=== PATIENT | female | born 1985 | race Hispanic/Latino ===

== ENCOUNTER 2016-08-29 17:56 | Emergency (ER) | payer BC ==
[2016-08-29 18:10] VITALS: BP 131/84; PULSE 82; RESP 20; TEMP 97.8; O2SAT 98
--- NOTE | 2016-08-29 18:40 | ED PDOC ---
Syncope/Near Syncope/Dizziness Time Seen by Provider: 08/29/16 18:09 Chief Complaint (Nursing): Dizziness/Lightheaded Chief Complaint (Provider): Dizziness History Per: Patient History/Exam Limitations: no limitations Onset/Duration Of Symptoms: Days ([id number]) Current Symptoms Are (Timing): Still Present Severity: Mild (Mild onset) Additional Complaint(s): Emilia Lee presents to the ED with a chief complaint of mild dizziness ongoing for 2 weeks and is progressively getting worse. Associated symptoms includes a mild cough and cold, along with some trouble focusing. Patient also states that 2 days prior to onset patient returned from vacation to [place] and [place]. Denies any focal weakness, hearing loss, vision loss, or headache, but reports feeling pressure on the anterior forehead to the temples. Patient has been feeling vertiginous and states she almost lost her balance and fell down. Symptoms are especially worse with certain movement of the head. PMD: No provider Past Medical History Reviewed: Historical Data, Nursing Documentation, Vital Signs Vital Signs: Last Vital Signs Temp 97.8 F 08/29/16 18:08 Pulse 82 08/29/16 18:08 Resp 20 08/29/16 18:08 BP 131/84 08/29/16 18:08 Pulse Ox 98 08/29/16 18:08 - Medical History PMH: No Chronic Diseases - Surgical History Surgical History: (1 ) - Family History Family History: States: Diabetes, Hypertension - Social History Current smoker - smoking cessation education provided: No Ex-Smoker (has not smoked in the last 12 months): No Alcohol: Social Drugs: Denies - Home Medications Home Medications: Ambulatory Orders Medication Instructions Recorded Meclizine [Antivert] 25 mg PO Q6 PRN #30 tab 08/29/16 Ondansetron ODT [Zofran ODT] 1 odt PO Q6 PRN #20 odt 08/29/16 Prednisone 50 mg PO DAILY #4 tablet 08/29/16 - Allergies Allergies/Adverse Reactions: Allergies Allergy/AdvReac Type Severity Reaction Status Date / Time No Known Allergies Allergy Verified 08/29/16 18:08 Review of Systems ROS Statement: Except As Marked, All Systems Reviewed And Found Negative (and as per HPI) Constitutional: Positive for: Other (Mild cold) Eyes: Negative for: Vision Change (No vision loss) ENT: Negative for: Other (No Hearing loss) Respiratory: Positive for: Cough (Mild) Neurological: Positive for: Dizziness. Negative for: Headache Physical Exam - Reviewed Nursing Documentation Reviewed: Yes Vital Signs Reviewed: Yes - Physical Exam Appears: Positive for: Non-toxic, Uncomfortable Head Exam: Positive for: ATRAUMATIC, NORMOCEPHALIC Skin: Positive for: Warm, Dry Eye Exam: Positive for: EOMI, PERRL, Nystagmus (to RIGHT side) ENT: Negative for: Pharyngeal Erythema, Tonsillar Exudate Neck: Positive for: Painless ROM, Supple Cardiovascular/Chest: Positive for: Regular Rate, Rhythm, Chest Non Tender. Negative for: Murmur Respiratory: Positive for: Normal Breath Sounds. Negative for: Wheezing, Respiratory Distress Gastrointestinal/Abdominal: Positive for: Soft. Negative for: Tenderness Back: Positive for: Normal Inspection. Negative for: Vertebral Tenderness Extremity: Positive for: Normal ROM. Negative for: Deformity Lymphatic: Negative for: Adenopathy Neurologic/Psych: Positive for: Alert, electric needle specialist II-XII (intact), Oriented (x3), Mood/ Affect (mildly anxious, normal concentration, normal thought process, normal affect), Cerebellar Tests (normal FTN), Gait (steady), Other (+dixhallpike testing to RIGHT sided rotation). Negative for: Motor/Sensory Deficits, Aphasia - Laboratory Results Result Diagrams: 08/29/16 19:00 08/29/16 19:00 Interpretation Of Abn Labs: no emergent clinically significant lab abnormalities - ECG O2 Sat by Pulse Oximetry: 98 Pulse Ox Interpretation: Normal - Progress ED Course And Treament: Accession No. : [id number] Patient Name / ID : JOAQUÍN TRIMBLE M / [id number] Exam Date : 08/29/2016 18:39:49 ( Approved ) Study Comment : Sex / Age : F / 31Y Creator : Howard Kaur MD Dictator : Howard Kaur MD Inspector Motor Vehicles : Beater Room Supervisor : Howard Kaur MD Approver2 : Report Date : 08/29/2016 19:00:19 My Comment : PROCEDURE: CT HEAD WITHOUT CONTRAST. HISTORY: dizziness COMPARISON: None available. TECHNIQUE: Axial computed tomography images were obtained through the head/brain without intravenous contrast. Radiation dose: Total exam DLP = 795.60 mGy-cm. This CT exam was performed using one or more of the following dose reduction techniques: Automated exposure control, adjustment of the mA and/or kV according to patient size, and/or use of iterative reconstruction technique. FINDINGS: HEMORRHAGE: No intracranial hemorrhage. BRAIN: No mass effect or edema. No atrophy or chronic microvascular ischemic changes. VENTRICLES: Unremarkable. No hydrocephalus. CALVARIUM: Unremarkable. PARANASAL SINUSES: Unremarkable as visualized. No significant inflammatory changes. MASTOID AIR CELLS: Unremarkable as visualized. No inflammatory changes. OTHER FINDINGS: None. IMPRESSION: Normal CT of the Head. No intracranial mass, hemorrhage or evidence of acute infarct. No relief from meclizine. Pt ordered given decadron. Offered valium but declined. She would like to go home. Strongly advised neuro and ENT follow up. Re-evaluation Time: 20:00 Condition: Unchanged (but eager to go home) Disposition - Clinical Impression Clinical Impression: Vertigo - Disposition Referrals: [facility] [Outside] Sonny Murillo MD [Staff Provider] - 09/01/16 (FOLLOW UP WITH NEUROLOGY NEXT WEEK) Disposition: Routine/Home Disposition Time: 21:00 Condition: STABLE Prescriptions: Meclizine [Antivert] 25 mg PO Q6 PRN #30 tab PRN Reason: Dizziness Ondansetron ODT [Zofran ODT] 1 odt PO Q6 PRN #20 odt PRN Reason: Nausea/Vomiting Prednisone 50 mg PO DAILY #4 tablet Instructions: Meniere Disease (ED), Benign Paroxysmal Positional Vertigo (ED) Forms: [facility] ED School/Work Excuse
--- NOTE | 2016-08-29 19:02 | CT ---
PROCEDURE: CT HEAD WITHOUT CONTRAST. HISTORY: dizziness COMPARISON: None available. TECHNIQUE: Axial computed tomography images were obtained through the head/brain without intravenous contrast. Radiation dose: Total exam DLP = 795.60 mGy-cm. This CT exam was performed using one or more of the following dose reduction techniques: Automated exposure control, adjustment of the mA and/or kV according to patient size, and/or use of iterative reconstruction technique. FINDINGS: HEMORRHAGE: No intracranial hemorrhage. BRAIN: No mass effect or edema. No atrophy or chronic microvascular ischemic changes. VENTRICLES: Unremarkable. No hydrocephalus. CALVARIUM: Unremarkable. PARANASAL SINUSES: Unremarkable as visualized. No significant inflammatory changes. MASTOID AIR CELLS: Unremarkable as visualized. No inflammatory changes. OTHER FINDINGS: None. IMPRESSION: Normal CT of the Head. No intracranial mass, hemorrhage or evidence of acute infarct.
[2016-08-29 19:04] LABS: BASO # 0.1 K/uL (0.0-0.2); BASO % 0.6 % (0.0-2.0); EOS # 0.2 K/uL (0.0-0.7); EOS % 1.7 % (0.0-4.0); HEMOGLOBIN 13.7 g/dL (12.0-16.0); LYMPH # 3.5 K/uL (1.0-4.3); LYMPH % 34.4 % (20.0-40.0); MEAN CELL VOLUME 90.5 fl (81.0-99.0); MEAN CORPUSCULAR HEMOGLOBIN 30.2 pg (27.0-31.0); MEAN CORPUSCULAR HGB CONC 33.3 g/dL (33.0-37.0); MEAN PLATELET VOLUME 6.7 fl (7.2-11.7); MONO # 0.8 K/uL (0.0-0.8); MONO % 7.5 % (0.0-10.0); NEUT # 5.7 K/uL (1.8-7.0); NEUT % 55.8 % (50.0-75.0); RBC 4.56 Mil/uL (3.80-5.20); RED CELL DISTRIBUTION WIDTH 12.5 % (11.5-14.5); WHITE BLOOD COUNT 10.2 K/uL (4.8-10.8)
[2016-08-29 19:35] LABS: ALB/GLOB RATIO 1.6 (1.0-2.1); ALBUMIN 4.9 g/dL (3.5-5.0); ALT/SGPT 45 U/L (9-52); AST/SGOT 30 U/L (14-36); BLOOD UREA NITROGEN 13 mg/dl (7-17); CALCIUM 9.9 mg/dL (8.4-10.2); GFR AFRICAN-AMERICAN > 60; GFR NON-AFRICAN AMERICAN > 60
[2016-08-29] MEDS ORDERED: Dexamethasone 4 mg/1 ml IVP STA (20:05)
== END 2016-08-29 22:15 | disposition home or self-care (01) ==
LOC: H.ER 17:56
DX: R42 Dizziness and giddiness (principal)
CPT/HCPCS: 70450; 80053; 81025; 82948; 83735; 84100; 85025; 96374; 99285; J1100

== ENCOUNTER 2017-12-05 11:23 | Emergency (ER) | payer BC ==
[2017-12-05 11:27] VITALS: BMI 30.4
[2017-12-05] MEDS ORDERED: Sodium Chloride 0.9% 1,000 ML IV STA (11:50)
--- NOTE | 2017-12-05 11:50 | ED PDOC ---
HPI: General Adult Time Seen by Provider: 12/05/17 11:31 Chief Complaint (Provider): abd pain, nausea History Per: Patient Additional Complaint(s): 32-year-old female with no past medical history presents with right upper abdominal pain and diarrhea ongoing for 1 week. Patient also has persistent nausea with no vomiting. Patient states her last normal solid bowel movement was last week. Since then she has had watery, nonbloody bowel movements only. Patient has been able to eat but does have slightly decreased appetite. She states the pain is only 3-4 out of 10 and she has not taken any meds for pain relief since pain started last week. PMD: none Past Medical History Reviewed: Historical Data, Nursing Documentation, Vital Signs Vital Signs: Last Vital Signs Temp 98.8 F 12/05/17 11:27 Pulse 66 12/05/17 11:27 Resp 17 12/05/17 11:27 BP 115/80 12/05/17 11:27 Pulse Ox 100 12/05/17 11:27 - Medical History PMH: No Chronic Diseases - Surgical History Surgical History: (1 ) - Family History Family History: States: Diabetes, Hypertension - Living Arrangements Living Arrangements: With Family - Social History Current smoker - smoking cessation education provided: No Alcohol: None Drugs: Denies - Home Medications Home Medications: Ambulatory Orders Medication Instructions Recorded Meclizine [Antivert] 25 mg PO Q6 PRN #30 tab 08/29/16 Ondansetron ODT [Zofran ODT] 1 odt PO Q6 PRN #20 odt 08/29/16 Prednisone 50 mg PO DAILY #4 tablet 08/29/16 Ondansetron [Zofran Odt] 4 mg PO ASDIR PRN #10 odt 12/05/17 - Allergies Allergies/Adverse Reactions: Allergies Allergy/AdvReac Type Severity Reaction Status Date / Time No Known Allergies Allergy Verified 08/29/16 18:08 Review of Systems ROS Statement: Except As Marked, All Systems Reviewed And Found Negative Constitutional: Negative for: Fever, Chills Cardiovascular: Negative for: Chest Pain Respiratory: Negative for: Cough Gastrointestinal: Positive for: Nausea, Abdominal Pain, Diarrhea. Negative for: Vomiting Physical Exam - Reviewed Nursing Documentation Reviewed: Yes Vital Signs Reviewed: Yes - Physical Exam Appears: Positive for: Well, Non-toxic, No Acute Distress Skin: Positive for: Normal Color. Negative for: Rash Eye Exam: Positive for: Normal appearance Cardiovascular/Chest: Positive for: Regular Rate, Rhythm Respiratory: Positive for: Normal Breath Sounds Gastrointestinal/Abdominal: Positive for: Other (Mild tenderness right upper quadrant, mild distention noted, no rebound or guarding, normoactive bowel sounds in all 4 quadrant) Back: Negative for: L CVA Tenderness, R CVA Tenderness Extremity: Positive for: Normal ROM Neurologic/Psych: Positive for: Alert, Oriented - Laboratory Results Result Diagrams: 12/05/17 12:40 12/05/17 12:40 Urine POC: Negative Urine dip results: Negative for: Leukocyte Esterase, Blood, Nitrate, Ketones, Glucose, Bilirubin, Protein - ECG O2 Sat by Pulse Oximetry: 100 Pulse Ox Interpretation: Normal - Other Rad CT abd and pelvis with IV contrast X-Ray: Read By Radiologist X-Ray Interpretation: fatty liver, no other finding Medical Decision Making Medical Decision Makin32 year old with abdominal pain and diarrhea Plan: Urine test Urine dip CBC CMP Lipase CT and and pelvis with IV contrast Patient is aware of all diagnostic testing results, all questions answered. Liver functions are elevated mildly. Will draw hepatitis panel. Patient given dietary instructions for relief of diarrhea. Advised PMD follow-up. Disposition - Clinical Impression Clinical Impression: Abdominal pain, Diarrhea - Patient ED Disposition Is Patient to be Admitted: No Counseled Patient/Family Regarding: Studies Performed, Diagnosis, Need For Followup - Disposition Referrals: Alejandrina Quinones MD [Staff Provider] - Disposition: Routine/Home Disposition Time: 15:50 Condition: STABLE Additional Instructions: Drink plenty of fluids. Follow-up BRAT diet for relief of diarrhea: Bananas, rice, apples and toast. Contact your insurance company to obtain a primary care provider that is in network. Prescriptions: Ondansetron [Zofran Odt] 4 mg PO ASDIR PRN #10 odt PRN Reason: Nausea/Vomiting Instructions: Diarrhea in Adolescents and Adults, Stomach Ache and Stomach Upset Results - Lab Results Lab Results: 12/05/17 12/05/17 12:40 12:40 WBC 8.1 RBC 4.72 Hgb 14.6 Hct 42.9 MCV 91.1 MCH 30.9 MCHC 33.9 RDW 12.7 Plt Count 308 MPV 7.0 L Neut % (Auto) 52.7 Lymph % (Auto) 36.4 Nuckolls % (Auto) 8.2 Eos % (Auto) 1.9 Baso % (Auto) 0.8 Neut # (Auto) 4.3 Lymph # (Auto) 3.0 Nuckolls # (Auto) 0.7 Eos # (Auto) 0.2 Baso # (Auto) 0.1 Sodium 140 Potassium 4.2 Chloride 106 Carbon Dioxide 23 Anion Gap 15 BUN 13 Creatinine 0.6 L Est GFR ( Amer) > 60 Est GFR (Non-Af Amer) > 60 Random Glucose 80 Calcium 9.8 Total Bilirubin 0.6 AST 42 H ALT 82 H D Alkaline Phosphatase 66 Total Protein 8.1 Albumin 4.6 Globulin 3.5 Albumin/Globulin Ratio 1.3 Lipase 75
[2017-12-05 13:10] LABS: BASO # 0.1 K/uL (0.0-0.2); BASO % 0.8 % (0.0-2.0); EOS # 0.2 K/uL (0.0-0.7); EOS % 1.9 % (0.0-4.0); HEMOGLOBIN 14.6 g/dL (12.0-16.0); LYMPH % 36.4 % (20.0-40.0); MEAN CELL VOLUME 91.1 fl (81.0-99.0); MEAN CORPUSCULAR HEMOGLOBIN 30.9 pg (27.0-31.0); MEAN CORPUSCULAR HGB CONC 33.9 g/dL (33.0-37.0); MONO # 0.7 K/uL (0.0-0.8); MONO % 8.2 % (0.0-10.0); NEUT # 4.3 K/uL (1.8-7.0); NEUT % 52.7 % (50.0-75.0); NRBC % 0.1 % (0.0-0.0); RBC 4.72 Mil/uL (3.80-5.20); RED CELL DISTRIBUTION WIDTH 12.7 % (11.5-14.5); WHITE BLOOD COUNT 8.1 K/uL (4.8-10.8)
[2017-12-05] MEDS ORDERED: Iohexol 300 100 ML IJ ONE (13:10)
[2017-12-05] MEDS ORDERED: Sodium Chloride 0.9% 50 ML IV ONE (13:10)
[2017-12-05 13:18] LABS: ALB/GLOB RATIO 1.3 (1.0-2.1); ALBUMIN 4.6 g/dL (3.5-5.0); ALT/SGPT 82 U/L (9-52); AST/SGOT 42 U/L (14-36); BLOOD UREA NITROGEN 13 mg/dl (7-17); CALCIUM 9.8 mg/dL (8.4-10.2); GFR NON-AFRICAN AMERICAN > 60; LIPASE 75 U/L (23-300)
--- NOTE | 2017-12-05 15:23 | CT ---
Date of service: 12/05/2017 PROCEDURE: CT Abdomen and Pelvis with contrast HISTORY: right upper abd pain, diarrhea COMPARISON: None. TECHNIQUE: Contrast dose: 98 mL Omnipaque 300 Radiation dose: Total exam DLP = 966.17 mGy-cm. This CT exam was performed using one or more of the following dose reduction techniques: Automated exposure control, adjustment of the mA and/or kV according to patient size, and/or use of iterative reconstruction technique. FINDINGS: LOWER THORAX: Unremarkable. LIVER: Diffuse hepatic steatosis. No gross lesion or ductal dilatation. GALLBLADDER AND BILE DUCTS: Unremarkable. PANCREAS: Unremarkable. No gross lesion or ductal dilatation. SPLEEN: Unremarkable. ADRENALS: Unremarkable. No mass. KIDNEYS AND URETERS: Unremarkable. No hydronephrosis. No solid mass. VASCULATURE: Unremarkable. No aortic aneurysm. No aortic atherosclerotic calcification or mural plaque present. BOWEL: Unremarkable. No obstruction. No gross mural thickening. APPENDIX: Normal appendix. PERITONEUM: Tiny fat containing umbilical hernia. No free fluid. No free air. LYMPH NODES: Unremarkable. No enlarged lymph nodes. BLADDER: Unremarkable. REPRODUCTIVE: Unremarkable. BONES: No acute fracture. OTHER FINDINGS: None. IMPRESSION: No acute abdominal pelvic pathology.
[2017-12-05 16:31] VITALS: BP 132/74; PULSE 70; RESP 18; TEMP 98.3; O2SAT 98
[2017-12-07 08:51] LABS: HEPATITIS B SURFACE AG Negative (NEGATIVE)
[2017-12-07 08:57] LABS: HEPATITIS A IGM NEGATIVE (NEGATIVE); HEPATITIS B CORE AB NEGATIVE (NEGATIVE)
[2017-12-07 09:08] LABS: HEPATITIS C ANTIBODY NEGATIVE (NEGATIVE)
== END 2017-12-05 16:31 | disposition home or self-care (01) ==
LOC: H.ER 11:23
DX: R19.7 Diarrhea, unspecified (principal); R10.9 Unspecified abdominal pain
CPT/HCPCS: 74177; 80053; 80074; 81025; 83690; 85025; 99284; J7030; Q9967